=== PATIENT | female | born 1980 | race African-American/Black ===

== ENCOUNTER 2017-05-19 13:24 | Emergency (ER) | payer MEDICAID ==
[~2017-05-19] VITALS: Ht 157.5 cm; Wt 85.7 kg
[2017-05-19 13:41] VITALS: BP 123/68
[2017-05-19] MEDS ORDERED: IBUPROFEN 800 MG TAB PO ONE (14:45)
== END 2017-05-19 15:05 | disposition home or self-care (01) ==
LOC: ER 13:24
DX: S52.125A Nondisplaced fracture of head of left radius, initial encounter for closed fracture (principal); W19.XXXA Unspecified fall, initial encounter; Y93.89 Activity, other specified; Y99.8 Other external cause status; Y92.89 Other specified places as the place of occurrence of the external cause
CPT/HCPCS: 73080; 73110; 81025